=== PATIENT | female | born 1985 | race Caucasian/White ===

== ENCOUNTER 2019-02-14 19:13 | Emergency (ER) | payer OTHER ==
[~2019-02-14] VITALS: Ht 160 cm; Wt 100.0 kg
[~2019-02-14 19:13] MED LIST: DENIES MEDS
[2019-02-14 19:26] VITALS: Ht 160 cm; Wt 100.0 kg
[2019-02-14] MEDS ORDERED: ONDANSETRON 4 MG INJ IV STA (19:26)
[2019-02-14 19:30] VITALS: BP 114/59; PULSE 75; RESP 20
[2019-02-14] MEDS ORDERED: FAMOTIDINE 20 MG INJ IV ONE (19:30)
[2019-02-14] MEDS ORDERED: SOD CHLORIDE 0.9% 1,000 ML IV ONE (19:30)
--- NOTE | 2019-02-14 21:59 | ERD ---
ER Documentation Chief Complaint Chief Complaint epigastric/rt upper chest pain sharp x 30 min w/ 3hrs heartburn. 15wk iup HPI This is a 33-year-old female with a past medical history of heartburn, previous bariatric surgery, currently at 15 weeks gestational age who is presenting with waxing and waning moderate burning sharp epigastric pain radiating into her throat with nausea. The patient reports that symptoms have b een getting worse since she became , but it became acutely worse approximately 3 hours prior to arrival to the emergency department. The patient did take Pepcid prior to arrival. She does not recall eating anything out of the ordinary. She does not endorse any alleviating or exacerbating factors. The patient denies any other abdominal pain. She has not yet felt the baby move. She does not endorse any vaginal pain or burning or bleeding or loss of fluid or discharge. She does not believe she could have a sexually transmitted infection. She does not endorse any dysuria or hematuria or urgency or frequency. She does not endorse constipation or diarrhea. The patient denies fever or chills. The patient has had no headache or vision changes. The patient does not endorse neck or back pain. The patient denies lightheadedness or dizziness. The patient has had no chest pain or trouble breathing. The patient has had no focal deficits. The patient has had no weakness or numbness or tingling to the face or extremities. ROS All systems reviewed and are negative except as per history of present illness. Medications Home Meds Reported Medications [Denies Meds] No Conflict Check 06/28/10 Allergies Allergies: Coded Allergies: Penicillins (Verified Allergy, Mild, 06/28/10) PMhx/Soc History of Surgery: Yes (EAR SURGERY, TONSILLECTOMY, BREAST REDUCTION,BARIATRIC) Anesthesia Reaction: No Hx Neurological Disorder: No Hx Respiratory Disorders: Yes (ASTHMA) Hx Cardiac Disorders: No Hx Psychiatric Problems: Yes (DEPRESSION) Hx Miscellaneous Medical Probl: Yes (Heartburn) Hx Alcohol Use: No Hx Substance Use: No Hx Tobacco Use: Yes (HALF A PACK DAILY) Smoking Status: Current every day smoker FmHx Family History: No diabetes Physical Exam Vitals Vital Signs Date Temp Pulse Resp B/P (MAP) Pulse Ox O2 O2 Flow FiO2 Time Delivery Rate 02/14/19 98.2 99 20 114/59 100 19:26 (77) Physical Exam Const: No acute distress Head: Atraumatic Eyes: Normal Conjunctiva ENT: Normal External Ears, Nose and Mouth. Neck: Full range of motion. No meningismus. Resp: Clear to auscultation bilaterally Cardio: Regular rate and rhythm, no murmurs Abd: Soft, non distended. Gravid uterus. Mild epigastric tenderness. Little l bowel sounds Skin: No petechiae or rashes Back: No midline or flank tenderness Ext: No cyanosis, or edema Neur: Awake and alert Psych: Normal Mood and Affect Result Diagram: 02/14/19194702/14/191947 Results 24 hrs Laboratory Tests Test 02/14/19 19:48 White Blood Count 8.4 10^3/ul Red Blood Count 4.10 10^6/ul Hemoglobin 10.8 g/dl Hematocrit 33.5 % Mean Corpuscular Volume 81.7 fl Mean Corpuscular Hemoglobin 26.3 pg Mean Corpuscular Hemoglobin Concent 32.2 g/dl Red Cell Distribution Width 18.2 % Platelet Count 198 10^3/UL Mean Platelet Volume 12.7 fl Immature Granulocytes % 0.400 % Neutrophils % 63.7 % Lymphocytes % 26.0 % Monocytes % 8.4 % Eosinophils % 1.1 % Basophils % 0.4 % Nucleated Red Blood Cells % 0.0 /100WBC Immature Granulocytes # 0.030 10^3/ul Neutrophils # 5.4 10^3/ul Lymphocytes # 2.2 10^3/ul Monocytes # 0.7 10^3/ul Eosinophils # 0.1 10^3/ul Basophils # 0.0 10^3/ul Nucleated Red Blood Cells # 0.0 10^3/ul Sodium Level 137 mmol/L Potassium Level 4.5 mmol/L Chloride Level 109 mmol/L Carbon Dioxide Level 22 mmol/L Anion Gap 6 Blood Urea Nitrogen 9 mg/dl Creatinine 0.39 mg/dl Est Glomerular Filtrat Rate mL/min > 60 mL/min Glucose Level 93 mg/dl Calcium Level 8.9 mg/dl Total Bilirubin 0.1 mg/dl Direct Bilirubin 0.00 mg/dl Indirect Bilirubin 0.1 mg/dl Aspartate Amino Transf (AST/SGOT) 18 IU/L Alanine Aminotransferase (ALT/SGPT) 11 IU/L Alkaline Phosphatase 42 IU/L Total Protein 6.5 g/dl Albumin 3.4 g/dl Globulin 3.10 g/dl Albumin/Globulin Ratio 1.09 Lipase 65 U/L Beta HCG, Quantitative 65981.0 mIU/ml Current Medications Medications Dose Sig/Emily Start Time Status Last (Trade) Ordered Route PRN Stop Time Admin Dose Reason Admin Ondansetron 4 mg ONCE STAT 02/14/19 DC 02/14/19 HCl (Zofran IV 19:26 19:55 Inj) 02/14/19 19:31 Famotidine 20 mg ONCE ONCE 02/14/19 DC 02/14/19 (Pepcid Iv) IV 19:30 19:55 02/14/19 19:31 Sodium 1,000 ml @ Q1H ONCE 02/14/19 DC 02/14/19 Chloride 1,000 mls/hr IV 19:30 19:55 02/14/19 20:29 Procedures/MDM MDM The patient's presentation warrants further investigation. Previous medical records, if available, were reviewed. LABS The patient's laboratory testing was obtained and reviewed. No emergent treatment was required unless described below. CBC: No E/o systemic infection or severe anemia or thrombocytopenia. Mild normocytic anemia, not emergent. Chemistry: No E/o severe acidosis or alkalosis or renal failure or liver disease or diabetic ketoacidosis Lipase: No E/o pancreatitis Urine: Patient did not provide hCG: Appropriately elevated EKG EKG read by me: Rate/Rhythm: Regular rate and rhythm at a rate of 87 bpm Intervals: Normal [place]: Normal Impression: No evidence of acute ischemia or arrhythmia IMAGING Imaging and Radiology interpretation reviewed. CXR FINDINGS: The study is limited due to the patient's body habitus and overlying bowel gas. The liver demonstrates slightly increased echogenicity. The liver is normal in size and no focal solid lesions are seen. The liver measures 17.4 cm in length. The portal vein is patent with normal direction of flow. No intrahepatic biliary dilatation is seen. Multiple calcified gallstones are identified within the gallbladder. There is no pericholecystic fluid or gallbladder wall thickening. The common bile duct measures 1.6 mm in maximal dimension. The pancreas is not well seen due to overlying bowel gas. No free fluid is identified. The right kidney is normal in size, and demonstrate normal echogenicity and cortical thickness. The right kidney measures 11.7 cm in long dimension. There is no evidence of hydronephrosis. There are no kidney stones. IMPRESSION: Cholelithiasis. Mild fatty infiltration of the liver. Electronically viewed and signed by .Yusuf Sanderson MD, on 02/14/2019 20:37 TREATMENT/DISPOSITION The patient presents with burning epigastric pain. She has a history of heartburn. Gastritis versus PUD versus GERD are possibilities. The patient was treated with IV fluids, Zofran and Pepcid with improvement of her symptoms. Right upper quadrant ultrasound was also completed that revealed gallstones. Biliary colic is certainly a possibility. I do not suspect cholecystitis. This may be treated in an outpatient setting. The patient presents with abdominal pain. The patient does not have any evidence of peritonitis. The patient does not have clinical symptoms concerning for mesenteric ischemia or ischemic colitis. The patient does not have left upper quadrant tenderness. I have low suspicion for pancreatitis. The patient does not have any right lower quadrant tenderness, or periumbilical tenderness. I have low suspicion for appendicitis. The patient does not have suprapubic tenderness. I have decreased suspicion for cystitis. The patient does not have any left lower quadrant tenderness, and I have low suspicion for diverticulosis or diverticulitis. The patient does not have any flank tenderness. The patient does not have gross hematuria. I have decreased suspicion for nephrolithiasis or renal colic. The patient does not have any palpable pulsatile mass or severe abdominal pain radiating to the back. I have low suspicion for aortic aneurysm, dissection or rupture. The patient does not have any issues with her . Her hCG is appropriately elevated and her physical exam is reassuring. The patient may f ollow-up with her brim buster as scheduled. DISCHARGE Upon reevaluation of the patient, symptoms have improved. No emergent diagnoses were identified. At this time, I feel that the patient stable for discharge. The patient was instructed to follow-up with a primary care physician in 1-3 days. The patient will also follow-up with her brim buster. The patient will be given strict precautions with which to return to the emergency department. Prescriptions: Zofran Disclaimer: Inadvertent spelling and grammatical errors are likely due to EHR/dictation software use and do not reflect on the overall quality of patient care. Note that the electronic time recorded on this note does not necessarily reflect the actual time of the patient encounter. Departure Diagnosis: Primary Impression: Epigastric pain Additional Impressions: Cholelithiasis Cholelithiasis location: gallbladder Cholecystitis presence: without cholecystitis Biliary obstruction: without biliary obstruction Qualified Codes: K80.20 - Calculus of gallbladder without cholecystitis without obstruction Biliary colic Normocytic anemia Condition: Stable Patient Instructions: Epigastric Pain (Uncertain Cause), Gerd (Adult), Gallstones, Anemia During Additional Instructions: Thank you for for coming to [facility] for your care today. Please ask your nurse or provider if you have questions about your care today and do not leave until all your questions have been answered. Please use any medications given as directed and follow-up with your doctor (or the doctor you were referred to) in the next 1-3 days. If you do not have a primary care doctor you may follow up at the [facility] or [facility] (listed below). You may also use motrin and tylenol as needed for fever and/or pain unless instructed otherwise by your provider or nurse. Indications for more urgent follow-up have been discussed, but you may return to the Emergency Department at ANY time for any worrisome or worsening symptoms. If you have abdominal pain, please know that no test or exam you received is perfect and you should follow up within 8 hours for continued pain. If you had any imaging studies today, such as an X-Ray or CT Scan, these studies will be reviewed later by a radiologist. You will be called if there are important findings that were not identified today, so make sure the contact information you provided at registration is correct. If you received any narcotic pain control medicine today, such as Vicodin, Morphine or Dilaudid, your coordination and judgment may be affected for a number of hours. Please do not drive or operate heavy machinery, and you may want someone to assist you at home. If you were given a prescription for narcotic medication, be aware that it is very addictive- use sparingly and only if necessary. PLEASE SEEK FURTHER EVALUATION AND MANAGEMENT AT YOUR DOCTORS OFFICE WITHIN THE NEXT 1-3 DAYS. IT IS YOUR RESPONSIBILITY TO MAKE AN APPOINTMENT FOR FOLOW-UP CARE. IF YOU HAVE A PRIMARY DOCTOR, PLEASE CALL THEIR OFFICE TO SCHEDULE AN APPOINTMENT FOR FOLLOW UP. IF YOU DO NOT HAVE A PRIMARY DOCTOR YOU CAN CALL OUR PHYSICIAN REFERRAL HOTLINE AT IF YOU CAN NOT AFFORD TO SEE A PHYSICIAN YOU CAN CHOSE FROM THE FOLLOWING [facility] CLINICS: [facility] [address] [facility] [address] [facility]. [facility] [address] [facility] [address] [facility] [address]. [facility]. [address] JORDAN MULLEN MD February 14, 2019 21:59
[2019-02-14] MEDS ORDERED: ONDA4TAB8 PO (22:00)
== END 2019-02-14 22:10 | disposition home or self-care (01) ==
LOC: E/R 19:13
DX: O26.892 Other specified pregnancy related conditions, second trimester (principal); R10.13 Epigastric pain; O99.012 Anemia complicating pregnancy, second trimester; O99.612 Diseases of the digestive system complicating pregnancy, second trimester; K80.20 Calculus of gallbladder without cholecystitis without obstruction; O99.512 Diseases of the respiratory system complicating pregnancy, second trimester; J45.909 Unspecified asthma, uncomplicated; O99.332 Smoking (tobacco) complicating pregnancy, second trimester; F17.210 Nicotine dependence, cigarettes, uncomplicated; Z3A.15 15 weeks gestation of pregnancy
CPT/HCPCS: 36415; 76705; 80053; 83690; 84702; 85025; 93005; 96374; 96375; J2405; J7030; Z7502; Z7610